=== PATIENT | female | born 1950 | race Caucasian/White ===

== ENCOUNTER 2021-01-06 21:06 | Emergency (ER) | payer OTHER ==
[~2021-01-06] VITALS: Ht 167.6 cm; Wt 49.4 kg
--- NOTE | ~2021-01-06 | EMS ---
[facility] [address] [place] [address] EMS Patient Care Report Name: AMARIS ORTA Room: [facility].RShelby#: [id number] Admission: 01/06/21 Attend Phys: Discharge: 01/07/21 Date of : 52 Report #: [id number] THIS REPORT FOR: //name// Report Transmitted: 01/07/2021 13:[address] [facility] Incident [id number] @ 01/06/2021 20:09 Incident [address] [place], [place] [id number] Patient AMARIS HANLEY Female, 70 Years 1950 Patient Address [address] [place] [id number] Patient History Anxiety disorder, unspecified, Patient Allergies No known allergies, Chief Complaint Anxiety/Stress feelings Disposition Transported No Lights/[place] Dispatch Reason Breathing Problem Transported To [facility] Narrative [facility] CREW [address] WAS DISPATCHED TO THE LISTED LOCAL ADDRESS ON A DIFFICULTY BREATHING. ON SCENE, WE contacted IFD WHO WAS AT PATIENT SIDE. THE PATIENT WAS ALERT, SITTING ON THE FRONT STEPS OF THE RESIDENCE WITH NO OBVIOUS IMMEDIATE LIFE THREATS BUT WAS OBVIOUSLY IN EMOTIANAL DISTRESS. IFD STATED THE PATIENT WAS HAVING SEVERE ANXIETY DUE TO LIFE EVENTS AND HAS NOT BEEN ON HER MEDICATION FOR SOME TIME NOW BECAUSE HER DOCTOR . THE PATIENT WAS SHAKING AND [facility] [address] [place] [address] EMS Patient Care Report Name: AMARIS ORTA Room: [facility]#: [id number] Admission: 01/06/21 Attend Phys: Discharge: 01/07/21 Date of : 52 Report #: [id number] BREATHING IRREGULARLY. WHILE OBTAINING DETAILS OF THE EVENTS, THE PATIENT WAS ASSISTED DOWN THE STAIRS TO THE STRETCHER WITHOUT INCIDENT. THE PATIENT WAS ABLE TO LAY DOWN THEN WAS SECURED WITH THE LAP BELTS. SHE WAS TRANSPORTED TO THE AMBULANCE WERE SHE WAS LOADED AND SECURED WITHOUT INCIDENT. INSIDE THE AMBULANCE, THE PATIENT WAS PLACED ON THE MONITOR AND OXYGEN VIA CAPNO CANNULA. A SECONDARY ASSESSMENT WAS COMPLETE A LEVEL OF CONCIUOSNESS WAS OBTAINED. WHEN ASKED QUESTIONS, THE PATIENT WOULD EXPLAINING REASONS FOR HER ANXIETY instead OF ANSWERING THE DIRECT QUESTIONS. THE PATIENT NEEDED TO BE CALMED DOWN SEVERAL TIMES BEFORE QUESTIONS WERE ANSWERED. THE PATIENT DENIED ANY DIZZINESS, HEADACHE, NAUSEA / VOMITING AND TINGLING IN HER extremities. SHE STATED SHE WAS HAVING SOME CHEST DISCOMFORT BUT IT "FEELS LIKE ANXIETY." AN ECG WAS OBTAINED. THE patient INITIALLY DENIED ASA BECAUSE HER MOUTH WAS SO DRY BUT AGREED TO TAKE IT A FEW MINUTES LATER. AN IV WAS ESTABLISHED AND VERSED WAS ADMINISTERED. A BLOOD SUGAR WAS OBTAINED AND TRANSPORT WAS INITIATED. VITALS WERE MONITORED EN-ROUTE. THE PATIENTS ANXIETY IMPROVED WITH BUT WOULD BEGIN TO increase SHE EXPLAINED HER REASONS FOR ANXIETY. THE PATIENT remained STABLE. ADDITIONAL ECG'S WERE OBTAINED DURING TRANSPORT. AT DESTINATION, THE PATIENT SIGNED THE privacy AND TRANSFER FORM. SHE WAS UNLOADED FROM THE AMBULANCE AND TAKEN INTO ROOM 17. USING THE STRETCHERS BLANKET, [facility] CREW AND HOSPITAL STAFF MOVED THE PATIENT OFF THE STRETCHER ONTO THE HOSPITAL BED WITHOUT INCIDENT. I GAVE PAZ TRIMBLE A VERBAL patient REPORT. A NARCOTIC WASTE WAS COMPLETE AND WITNESSED BY PAZ TRIMBLE. SHE SIGNED THE WASTE FORM AND THE RECEIVING FACILITY FORM, COMPLETING THE TRANSFER OF CARE, [facility] CREW CLEARED THE CALL. Initial Vitals @20:23SpO2: 99, @20:26SpO2: 99, @20:31SpO2: 99, @20:43SpO2: 100, @20:52SpO2: 100, @20:54SpO2: 100, @20:59SpO2: 100, @20:28 @20:29 @20:53 @20:23P: 116,R: 28,BP: 197/104, @20:33P: 108,R: 30,BP: 192/104, @20:43P: 106,R: 18,BP: 180/111, @20:52P: 97,R: 20,BP: 197/104, @20:54P: 97,R: 12,BP: 178/112, @20:59P: 91,R: 17,BP: 183/101, @20:41NlZZ6: 23, @20:71RxOY0: 22, @20:57ArCP6: 19, @20:79MdRW5: 19, @20:20IgCK5: 20, [place] [address] EMS Patient Care Report Name: AMARIS ORTA Room: [facility] ERIN Araya#: [id number] Admission: 01/06/21 Attend Phys: Discharge: 01/07/21 Date of : 52 Report #: [id number] @20:03XzIE7: 24, @20:94AjYR9: 24, @20:26RqVI9: 24, @20:23GCS: 15, @20:33GCS: 15, @20:43GCS: 15, @20:52GCS: 15, @20:54GCS: 15, @20:59GCS: 15, @20:20 @20:37Glucose: 139, Assessments @20:16MENTAL:SKIN:HEENT:LUNG SOUNDS:ABDOMEN:PELVIS//GI:EXTREMITIES:PULSE:NEURO: Impression Anxiety reaction/Emotional upset Procedures @20:34Midazolam - 5.000 Milligrams (mg) - Intravenous (IV)Response: Improved@20:40Aspirin - 324.000 Milligrams (mg) - OralResponse: Unchanged@20:23Oxygen Complications: ,Response: Unchanged@20:51QQVX2 digital capnographyResponse: UnchangedSucceeded@20:48FHEC4 digital capnographyResponse: UnchangedSucceeded@20:64BWRX6 digital capnographyResponse: UnchangedSucceeded@20:60ICGP2 digital capnographyResponse: UnchangedSucceeded@20:28BRKZ1 digital capnographyResponse: UnchangedSucceeded@20:12AVIH3 digital capnographyResponse: UnchangedSucceeded@20:33YGFB0 digital capnographyResponse: UnchangedSucceeded@20:51DZTZ0 digital capnographyResponse: UnchangedSucceeded@20:2812-Lead ECGResponse: UnchangedSucceeded@20:293-Lead ECGResponse: UnchangedSucceeded@20:5312-Lead ECGResponse: UnchangedSucceeded Timeline 16:16,Call Received 20:09,Dispatch Notified 20:09,Psap Call 20:09,Dispatched 20:09,En Route 20:15,On Scene 20:16,At Patient 20:20,BP: / M,PULSE: ,RR: R,SPO2: Ox,ETCO2: ,BG: ,PAIN: ,GCS: , 20:23,Oxygen Complications: ,,Response: Unchanged 20:23,ETCO2 digital capnography,Response: UnchangedSucceeded, 20:23,BP: / M,PULSE: ,RR: R,SPO2: 99 Ox,ETCO2: ,BG: ,PAIN: ,GCS: , 20:23,BP: 197/104 M,PULSE: 116,RR: 28 R,SPO2: Ox,ETCO2: ,BG: ,PAIN: ,GCS: , [place] [address] EMS Patient Care Report Name: AMARIS ORTA Room: [facility]#: [id number] Admission: 01/06/21 Attend Phys: Discharge: 01/07/21 Date of : 52 Report #: [id number] 20:23,BP: / M,PULSE: ,RR: R,SPO2: Ox,ETCO2: 23 ,BG: ,PAIN: ,GCS: , 20:23,BP: / M,PULSE: ,RR: R,SPO2: Ox,ETCO2: ,BG: ,PAIN: ,GCS: 15, 20:26,ETCO2 digital capnography,Response: UnchangedSucceeded, 20:26,BP: / M,PULSE: ,RR: R,SPO2: 99 Ox,ETCO2: ,BG: ,PAIN: ,GCS: , 20:26,BP: / M,PULSE: ,RR: R,SPO2: Ox,ETCO2: 22 ,BG: ,PAIN: ,GCS: , 20:28,12-Lead ECG,Response: UnchangedSucceeded, 20:28,BP: / M,PULSE: ,RR: R,SPO2: Ox,ETCO2: ,BG: ,PAIN: ,GCS: , 20:29,3-Lead ECG,Response: UnchangedSucceeded, 20:29,BP: / M,PULSE: ,RR: R,SPO2: Ox,ETCO2: ,BG: ,PAIN: ,GCS: , 20:31,ETCO2 digital capnography,Response: UnchangedSucceeded, 20:31,BP: / M,PULSE: ,RR: R,SPO2: 99 Ox,ETCO2: ,BG: ,PAIN: ,GCS: , 20:31,BP: / M,PULSE: ,RR: R,SPO2: Ox,ETCO2: 19 ,BG: ,PAIN: ,GCS: , 20:33,BP: 192/104 M,PULSE: 108,RR: 30 R,SPO2: Ox,ETCO2: ,BG: ,PAIN: ,GCS: , 20:33,BP: / M,PULSE: ,RR: R,SPO2: Ox,ETCO2: ,BG: ,PAIN: ,GCS: 15, 20:34,Midazolam - 5.000 Milligrams (mg) - Intravenous (IV),Response: Improved 20:37,ETCO2 digital capnography,Response: UnchangedSucceeded, 20:37,BP: / M,PULSE: ,RR: R,SPO2: Ox,ETCO2: 19 ,BG: ,PAIN: ,GCS: , 20:37,BP: / M,PULSE: ,RR: R,SPO2: Ox,ETCO2: ,B,PAIN: ,GCS: , 20:40,Aspirin - 324.000 Milligrams (mg) - Oral,Response: Unchanged 20:41,Depart Scene 20:43,ETCO2 digital capnography,Response: UnchangedSucceeded, 20:43,BP: / M,PULSE: ,RR: R,SPO2: 100 Ox,ETCO2: ,BG: ,PAIN: ,GCS: , 20:43,BP: 180/111 M,PULSE: 106,RR: 18 R,SPO2: Ox,ETCO2: ,BG: ,PAIN: ,GCS: , 20:43,BP: / M,PULSE: ,RR: R,SPO2: Ox,ETCO2: 20 ,BG: ,PAIN: ,GCS: , 20:43,BP: / M,PULSE: ,RR: R,SPO2: Ox,ETCO2: ,BG: ,PAIN: ,GCS: 15, 20:52,ETCO2 digital capnography,Response: UnchangedSucceeded, 20:52,BP: / M,PULSE: ,RR: R,SPO2: 100 Ox,ETCO2: ,BG: ,PAIN: ,GCS: , 20:52,BP: 197/104 M,PULSE: 97,RR: 20 R,SPO2: Ox,ETCO2: ,BG: ,PAIN: ,GCS: , 20:52,BP: / M,PULSE: ,RR: R,SPO2: Ox,ETCO2: 24 ,BG: ,PAIN: ,GCS: , 20:52,BP: / M,PULSE: ,RR: R,SPO2: Ox,ETCO2: ,BG: ,PAIN: ,GCS: 15, 20:53,12-Lead ECG,Response: UnchangedSucceeded, 20:53,BP: / M,PULSE: ,RR: R,SPO2: Ox,ETCO2: ,BG: ,PAIN: ,GCS: , 20:54,ETCO2 digital capnography,Response: UnchangedSucceeded, 20:54,BP: / M,PULSE: ,RR: R,SPO2: 100 Ox,ETCO2: ,BG: ,PAIN: ,GCS: , 20:54,BP: 178/112 M,PULSE: 97,RR: 12 R,SPO2: Ox,ETCO2: ,BG: ,PAIN: ,GCS: , 20:54,BP: / M,PULSE: ,RR: R,SPO2: Ox,ETCO2: 24 ,BG: ,PAIN: ,GCS: , 20:54,BP: / M,PULSE: ,RR: R,SPO2: Ox,ETCO2: ,BG: ,PAIN: ,GCS: 15, 20:59,ETCO2 digital capnography,Response: UnchangedSucceeded, 20:59,BP: / M,PULSE: ,RR: R,SPO2: 100 Ox,ETCO2: ,BG: ,PAIN: ,GCS: , 20:59,BP: 183/101 M,PULSE: 91,RR: 17 R,SPO2: Ox,ETCO2: ,BG: ,PAIN: ,GCS: , 20:59,BP: / M,PULSE: ,RR: R,SPO2: Ox,ETCO2: 24 ,BG: ,PAIN: ,GCS: , 20:59,BP: / M,PULSE: ,RR: R,SPO2: Ox,ETCO2: ,BG: ,PAIN: ,GCS: 15, 21:01,At Destination 21:22,[place] [address] EMS Patient Care Report Name: AMARIS ORTA Room: [facility] Marshal#: [id number] Admission: 01/06/21 Attend Phys: Discharge: 01/07/21 Date of : 52 Report #: [id number] v1.1 Copyright 2020 [employer] This EMS Care Summary contains data elements from the applicable legal record (which may be displayed differently). It is designed to provide pertinent information for the following purposes: continuity of care, clinical quality, and state data reporting. The complete legal record is available to ED staff and administrators of the receiving hospital in [employer]'s Patient Tracker. All data is provided "as is."
[2021-01-06] MEDS ORDERED: CLONAZEPAM 0.50.5 M1 PO (21:24)
[2021-01-06] MEDS ORDERED: SOMA350 MG PO (21:25)
[2021-01-06 21:56] LABS: HEMATOCRIT 44.3 % (37.0-47.0); HEMOGLOBIN 15.7 gm/dL (12.0-15.0); MCH 32.6 pg (26.0-34.0); MCHC 35.4 g/dL (28.0-37.0); MPV 6.5 fl. (7.2-11.1); RBC 4.81 mil/uL (4.20-5.00); RDW-CV 12.6 % (10.5-14.5); WBC 14.1 thou/uL (4.0-11.0)
[2021-01-06 22:02] LABS: CALCIUM 8.8 mg/dL (8.5-10.1); CREATININE 0.6 mg/dL (0.6-1.3)
[2021-01-06 22:07] LABS: ALBUMIN 4.1 g/dL (3.4-5.0); TOTAL BILIRUBIN 0.4 mg/dL (<0.1-1.0); TOTAL PROTEIN 6.7 g/dL (6.4-8.2)
[2021-01-06 22:23] LABS: ALCOHOL < 10 mg/dL (<10); SALICYLATE 7.2 mg/dL (2.8-20.0)
[2021-01-06 22:26] LABS: ACETAMINOPHEN < 2 ug/mL (10-30)
[2021-01-06 22:39] LABS: URINE BILIRUBIN NEGATIVE (Negative); URINE BLOOD NEGATIVE (Negative); URINE CLARITY CLEAR; URINE COLOR YELLOW; URINE GLUCOSE-RANDOM NEGATIVE (Negative); URINE KETONES NEGATIVE (Negative); URINE LEUKOCYTES NEGATIVE (Negative); URINE NITRITE NEGATIVE (Negative); URINE PROTEIN NEGATIVE (Negative); URINE UROBILINOGEN 0.2 E.U./dl (0.2-1.0)
[2021-01-06 22:48] LABS: AMP/METHAMP Negative (Negative); BARBITURATES Negative (Negative); BENZODIAZEPINES POSITIVE (Negative); COCAINE Negative (Negative); METHADONE Negative (Negative); OPIATES Negative (Negative); PCP Negative (Negative); THC Negative (Negative)
[2021-01-07] MEDS ORDERED: AMITRIPTYLINE H50 M3 PO (00:15)
[2021-01-07 00:29] VITALS: BP 170/58
--- NOTE | 2021-01-07 11:09 | EKG ---
[place] [address] ELECTROCARDIOGRAM REPORT Name: AMARIS ORTA Room: [facility]#: [id number] Admission: 01/06/21 Attend Phys: Discharge: 01/07/21 Date of : 52 Date of Service: 01/06/212209 Report #: [id number] THIS REPORT FOR: //name// [facility] ED Test Date: 2021-01-06 Test Time: 22:10:40 Pat Name: AMARIS ORTA Department: Room: Gender: Tail [employer] Worker: [place] : 1950 Requested By: Luda Machado Order Number: [id number] MD: Sorin Prakash Measurements Intervals Balko Rate: 85 P: 74 AR: 172 QRS: 54 QRSD: 97 T: 17 QT: 425 QTc: 506 Interpretive Statements Sinus rhythm Brief supraventricular bigeminy Probable left atrial enlargement Prolonged QT interval No previous ECG available for comparison Electronically Signed On 01-07-2021 11:09:15 CDT by Sorin Prakash [email or web address] <ELECTRONICALLY SIGNED> By: Sorin Prakash MD, [facility] 01/07/21 2929 09 09 Sorin Prakash MD, [facility] /EPI
== END 2021-01-07 00:30 | disposition home or self-care (01) ==
LOC: M.ERS 21:06
PROVIDERS: Personal Emergency Response Attendant
DX: F41.9 Anxiety disorder, unspecified (principal); E87.6 Hypokalemia; G89.29 Other chronic pain; Z79.899 Other long term (current) drug therapy